=== PATIENT | female | born 1995 | race Caucasian/White ===

== ENCOUNTER 2020-02-03 07:48 | Inpatient (IN) | payer MEDICAID, OTHER ==
[2020-02-03] MEDS ORDERED: Lactated Ringers 1,000 ML IV ONE (07:57)
[2020-02-03] MEDS ORDERED: Tranexamic Acid 1,000 MG in Sodium Chloride 0.9% 100 ML IV PRN (07:57)
[2020-02-03] MEDS ORDERED: Methylergonovine 0.2 MG/1 ML Amp IM PRN (07:57)
[2020-02-03] MEDS ORDERED: Ondansetron 4 MG/2 ML SDV IVPUSH PRN (07:57)
[2020-02-03] MEDS ORDERED: Sodium Chloride 0.9% 10 ML Syringe FLUSH PRN (07:57)
[2020-02-03] MEDS ORDERED: Lidocaine 1% 30 ML SDV INJECT PRN (07:57)
[2020-02-03] MEDS ORDERED: Carboprost Tromethamine 250 MCG/1 ML Amp IM PRN (07:57)
[2020-02-03] MEDS ORDERED: Misoprostol 400 MCG (4 X 100 MCG TAB) RECTAL PRN (07:57)
[2020-02-03] MEDS ORDERED: Oxytocin/Normal Saline 30 UNIT/500 ML BAG IV SCH ×2 (08:00)
--- NOTE | 2020-02-03 08:58 | PCM.PREANE ---
Preanesthetic Assessment - Procedure Proposed Procedure: pre induction assessment carrying twins. - Anesthesia/Transfusion/Family Hx Anesthesia History: Prior Anesthesia Without Reaction Family History of Anesthesia Reaction: No Transfusion History: No Prior Transfusion(s) - Review of Systems General: No Symptoms Pulmonary: No Symptoms Cardiovascular: No Symptoms Gastrointestinal: No Symptoms Neurological: No Symptoms Other: Reports: None - Physical Assessment NPO Status Date: 02/03/20 NPO Status Time: 07:00 Vital Signs: see nursing record ASA Class: 3E Mental Status: Alert & Oriented x3 Airway Class: Mallampati = 2 Dentition: Reports: Normal Dentition Thyro-Mental Finger Breadths: 3 Mouth Opening Finger Breadths: 3 ROM/Head Extension: Full Lungs: Clear to Auscultation Cardiovascular: Regular Rate - Lab Values: see chart. - Allergies Allergies/Adverse Reactions: Allergies Allergy/AdvReac Type Severity Reaction Status Date / Time No Known Allergies Allergy Verified 01/20/20 11:36 - Blood Blood Available: Yes Product(s) Available: PRBC - Anesthesia Plan Free Text/Narrative:: Discussed IT for labor analgesia. Discussed SAB and GETA for CS. Also discussed TAP blocks post-c section for pain relief. Pt. states understanding of all procedures discussed. Consents to IT including multiple repeats PRN and CS (SAB vs GETA) and TAP blocks. Pre-Op Medication Ordered: None - Acknowledgements Anesthesia Type Planned: General Anesthesia, Spinal Pt an Appropriate Candidate for the Planned Anesthesia: Yes Alternatives and Risks of Anesthesia Discussed w Pt/Guardian: Yes Pt/Guardian Understands and Agrees with Anesthesia Plan: Yes Additional Comments: Pt on baby ASA 1 QD for twin . PT BMI 47.1 69inches 319 pounds. PreAnesthesia Questionnaire HEENT History: Reports: None Cardiovascular History: Reports: None Respiratory History: Reports: None Gastrointestinal History: Reports: None Genitourinary History: Reports: None [employer] History: Reports: None Other Musculoskeletal History: CLICK IN LEFT HIP AT . ABMORMAL X-RAY Neurological History: Reports: None Psychiatric History: Reports: Anxiety, Depression Endocrine/Metabolic History: Reports: None Hematologic History: Reports: None Oncologic (Cancer) History: Reports: None Dermatologic History: Reports: None - Infectious Disease History Infectious Disease History: Reports: Chicken Pox - Past Surgical History HEENT Surgical History: Reports: None Cardiovascular Surgical History: Reports: None Respiratory Surgical History: Reports: None GI Surgical History: Reports: None Neurological Surgical History: Reports: None Musculoskeletal Surgical History: Reports: None - HOME MEDS Home Medications: Home Meds Ferrous Sulfate [Iron] 1 tab PO DAILY 12/23/19 [History] #103/Iron Fumarate/Fa [ ] 1 tab PO DAILY 12/23/19 [ History] Aspirin [Aspirin EC] 81 mg PO DAILY 12/30/19 [History] - CURRENT (IN HOUSE) MEDS Current Meds: Current Medications Acetaminophen (Tylenol) 650 mg PO Q4H PRN PRN Reason: Pain (Mild 1-3) and fever Carboprost Tromethamine (Hemabate Ds) 250 mcg IM ASDIRECTED PRN PRN Reason: HEMORRHAGE Fentanyl (Sublimaze) 100 mcg IVPUSH Q1H PRN PRN Reason: Pain (moderate 4-6) Lactated Ringer's (Ringers, Lactated) 1,000 mls @ 999 mls/hr IV BOLUS ONE Stop: 02/03/20 08:57 Lactated Ringer's (Ringers, Lactated) 1,000 mls @ 125 mls/hr IV ASDIRECTED JACOB Oxytocin/Sodium Chloride (Pitocin In Ns 30 Unit/500 Ml) 30 unit in 500 mls @ 2 mls/hr IV TITRATE JACOB; Protocol Tranexamic Acid 1,000 mg/ (Sodium Chloride) 110 mls @ 660 mls/hr IV ONETIME PRN PRN Reason: Bleeding Lidocaine HCl (Xylocaine-Mpf 1%) 30 ml INJECT ASDIRECTED PRN PRN Reason: Perineal Repair Methylergonovine Maleate (Methergine) 0.2 mg IM ASDIRECTED PRN PRN Reason: Hemorrhage Misoprostol (Cytotec) 800 mcg RECTAL ASDIRECTED PRN PRN Reason: Hemorrhage Ondansetron HCl (Zofran) 4 mg IVPUSH Q4H PRN PRN Reason: Nausea/Vomiting Sodium Chloride (Saline Flush) 10 ml FLUSH ASDIRECTED PRN PRN Reason: Keep Vein Open
--- NOTE | 2020-02-03 09:03 | OBOUT ---
DATE: 02/03/2020 INDICATION FOR NST: Twin , here for induction of labor. REPORT: Twin A: Baseline heart rate 130 beats per minute. Moderate beat- to-beat variability. Accelerations noted. Twin B: Baseline heart rate 140. [place] showing contractions about every 2 minutes, but the patient is not feeling any of these, and then there are periods where the uterus was quiet. INTERPRETATION: Category 1 reassuring and reactive NST. [facility] /[id number]
[2020-02-03] MEDS: Lactated Ringers 1,000 ML IV SCH ×3 (09:15→23:29)
[2020-02-03] MEDS: fentaNYL 100 MCG/2 ML SDV IVPUSH PRN ×3 (15:42→18:36)
--- NOTE | 2020-02-03 19:09 | PN ---
DATE: 02/03/2020 SUBJECTIVE: The patient is feeling her contractions more, and she is more uncomfortable. She was able to get a little bit of rest after a recent dose of fentanyl. Previous to that, I had tried rupturing her membranes, but was unsuccessful, and therefore, I wanted to give her a little bit of time and see if she ruptured on her own. She has been up on the peanut ball and primarily resting in bed and tolerating things overall quite well. OBJECTIVE: Vital Signs: Temperature 97.6, last blood pressure 136/61. Pelvic: Cervix 3 to 4 cm dilated, 80% effaced. Bag of water remains intact, and in palpating them, the cervix feels well defined, but the membranes themselves are quite rough and bumpy in texture, and I had some difficulty with the AmniHook and being able to get the bag of water to actually break. Did cause a little bit of vaginal bleeding as well, so I question if I have scraped the cervix some or if the membranes were just that resilient. Eventually, I did get the bag of water to break, and we had good return of clear fluid, and the patient tolerated quite well. Babies are doing well on the heart monitor after that, and the patient's contractions are continuing about every 2 to 3 minutes. ASSESSMENT: 1. A 38-6/7 weeks' twin in a 1, para 0. 2. Former smoker. 3. Class 3 obesity. 4. Blood type A positive, Rh negative, group B strep negative. 5. Abnormal glucose tolerance test. 6. Mild preeclampsia. Blood pressure is currently doing well without any medications. PLAN: At this time, continue with active labor management. Continue increasing the Pitocin. May need to consider taking a break from the Pitocin if things are not progressing normally. Dr. Stone and Dr. Lopez have been updated, and I will be anticipating them both to be present at time of delivery in case any additional assistance is necessary. [facility] /[id number]
[2020-02-03] MEDS ORDERED: EPINEPHrine 1 MG/1 ML Amp ONE ×2 (19:50→23:59)
--- NOTE | 2020-02-03 20:37 | PCM.PRNOTE ---
- Free Text/Narrative Note: IT In room 1951 Time out complete. Back prepped and draped NSF with betadine. Lidocaine 1% skin wheal. SAB 24ga 6 inch times 3 attempts. Success at L3/4 +CSF - Heme - Parathesia. 0.9mL marcaine 0.75% epi 0.1 mL Precedex 10 mcg saline 0.8mL procedure complete 2027. All needles accounted for and disposed of in sharps bin.
[2020-02-03] MEDS ORDERED: Dexmedetomidine 200 MCG/2 ML SDV ONE ×2 (23:50→23:59)
[2020-02-03] MEDS ORDERED: Succinylcholine 200 MG/10 ML MDV ONE (23:52)
[2020-02-03] MEDS ORDERED: Rocuronium 100 MG/10 ML MDV ONE (23:53)
[2020-02-03] MEDS ORDERED: Oxytocin/Normal Saline 30 UNIT/500 ML BAG ONE (23:57)
[2020-02-03] MEDS ORDERED: Sodium Chloride 0.9% 10 ML Syringe ONE (23:59)
[2020-02-04] MEDS ORDERED: ceFAZolin 1 GM in Premix Bag 1 BAG IV STA (01:20)
[2020-02-04] MEDS ORDERED: ceFAZolin 2 GM in Premix Bag 1 BAG IV STA (01:20)
[2020-02-04] MEDS ORDERED: Simethicone 80 MG Tab.Chew PO PRN (01:24)
[2020-02-04] MEDS ORDERED: Benzocaine/Menthol 20%-0.5% Spray 56 GM Canister TOP PRN (01:24)
[2020-02-04] MEDS: Ibuprofen 800 MG Tab PO PRN ×3 (02:09→19:56)
[2020-02-04] MEDS: Lactated Ringers 1,000 ML IV SCH (02:20)
--- NOTE | 2020-02-04 05:45 | DEL ---
DATE: 02/04/2020 PREPROCEDURE DIAGNOSES: 1. A 39-0/7 weeks' intrauterine based on last menstrual period. 2. 1 para 0. 3. Dichorionic diamniotic twin gestation with concurrent and symmetric growth on ultrasounds. 4. Former smoker. 5. Class III obesity. 6. Blood type A negative, group B strep negative, rubella immune. 7. Abnormal 1-hour glucose tolerance test, normal 3-hour test. 8. Mild preeclampsia with a protein-creatinine ratio of 0.46. 9. Anemia of . POSTPROCEDURE DIAGNOSES: 1. A 39-0/7 weeks' intrauterine based on last menstrual period. 2. 1, now para 1-0-0-2. 3. Dichorionic diamniotic twin gestation with concurrent and symmetric growth on ultrasounds. 4. Former smoker. 5. Class III obesity. 6. Blood type A negative, group B strep negative, rubella immune. 7. Abnormal 1-hour glucose tolerance test, normal 3-hour test. 8. Mild preeclampsia with a protein-creatinine ratio of 0.46. 9. Status post vacuum-assisted vaginal delivery of twin A. 10.Artificial rupture of membranes for twin B. 11.Post vacuum-assisted vaginal delivery of twin B for bradycardia in the 50s. Note, bradycardia for twin A in the 100s. 12.Status post 2nd-degree laceration repair. 13.Manual exploration of the uterus. 14.Avulsion of umbilical cord for baby A. 15.Anemia of . TOOL ROOM ATTENDANT: Yakov Lopez MD CARE PROVIDER: Lorna Stone MD. BRIEF HISTORY: The patient is a 24-year-old with the above-listed diagnoses, who presented to the hospital at 38 and 6/7 weeks' gestation for induction of labor due to twin gestation and desire for vaginal delivery. Babies were cephalic, cephalic on ultrasound. Please see history and physical and progress notes for further details. The patient's blood pressures were quite labile since she has been in the hospital, sometimes in the 120s/60s, at other times in the 160s/80s and occasional 90s, very dependent on anxiety, pain, or discomfort. Preeclampsia labs were positive and she ruled in with a protein-creatinine ratio of 0.46. Uric acid level of 7.1, normal platelets at 225, hemoglobin 11.7, otherwise fairly unremarkable. The patient's labor was initiated with Pitocin and she was at 3 to 3-1/2 cm and having regular contractions, but not making significant cervical change, so artificial rupture of membranes was attempted around 3 o'clock in the afternoon and then performed closer to 4 o'clock in the afternoon, after which time she continued to make excellent labor progress. She had an intrathecal for anesthesia, and once complete, she was transferred from the labor room down to the operating suite for a double setup with appropriate physicians, nursing staff, operating crew, and anesthesia all present. Delivery details as below. DESCRIPTION OF PROCEDURE: With the patient in dorsal lithotomy position, she delivered baby A via vacuum-assisted vaginal delivery over intact perineum. During pushing, she had excellent pushing efforts, however, the baby would go back up high into the vagina after each push and started to have some bradycardia down in the 100s, therefore, vacuum assistance was performed for suspicion of potential compromise if not delivered sooner. The patient was quickly verbally prepared that we were going to place a vacuum. Baby was estimated to be appropriate gestational age. Mother had adequate pelvis. Position was OA. No evidence of being asynclitic and station was 0, and +3 with pushing. Kept the vacuum suction in the green zone at 450 to 600 mmHg. There were no pop -offs. Kiwi type vacuum handheld was used and there were no complications. Baby was dried and stimulated. After that, 3-vessel umbilical cord was doubly clamped and cut. Baby taken by Dr. Stone to the warmer for initial evaluation. Cervix re-examined contracted to 9cm, but stretchy. Amniotic fluid sac for baby B was then ruptured with AmniHook with return of good clear fluid. Mother was able to continue pushing efforts and then came down to probably a -4 station and baby B was developing bradycardia in the 50s, so high vacuum was performed for delivery of baby B also for the indication of immediate or potential compromise. The patient continued to meet the criteria that she did for baby A and we also kept that suction in the 450 to 600 mmHg zone. Baby delivered in OA position over intact perineum. The vacuum was then removed and baby dried and stimulated. 3-vessel umbilical cord was doubly clamped and cut. Baby taken to the warmer again by Dr. Stone for further assessment. Placentas were attempted to be delivered by gentle cord traction and concomitant uterine massage, but not forthcoming. There was a 2nd-degree laceration just to the maternal right side with an associated hematoma. The perineal tissue was not involved. Dr. Lopez repaired that with 3-0 Vicryl in the usual fashion. This reapproximated nicely. There were some anterior bilateral labial lacerations that did not require repair. Further attempts to deliver the placentas resulted in cord avulsion of the placenta for baby A. We proceeded to deliver placenta for baby B hoping they were partly fused and that we could actually deliver them both with the cord for baby B, so the 2nd placenta delivered, was inspected and appeared intact. Dr. Lopez then removed the placenta for baby A by simply grasping where it was at the lower uterine segment. I inspected it and it did not appear to be intact. Dr. Lopez then performed manual exploration of the uterus and did not feel any remaining placental or other tissue fragments. With the ultrasound already being in the room, we did verify that the uterus appeared empty on ultrasound. With this, he did pull loose some of the stitching from the 2nd-degree repair, so I placed another 3-0 Vicryl stitch as a large [id number] suture with good approximation. Tissues reinspected and she had good hemostasis and uterus was firm. The patient tolerated the procedures well. FINDINGS: Stage I 8 hours, stage II 30 minutes, stage III 15 minutes. Baby A was born at 0018, score of 8 and 9, weight 2850 g (6 pounds 4 ounces), length 19-3/4 inches, head circumference 13 inches, chest circumference 12-1/2 inches. Baby B was delivered at 0031, score of 8 and 9, weight 3160 g (7 pounds 0 ounces), length 19-3/4 inches, head circumference 13-1/4 inches, chest circumference 13 inches. ESTIMATED BLOOD LOSS: 400 mL. COMPLICATIONS: None. DISPOSITION: Mother and baby to be taken back to the routine labor and delivery room to initiate bonding and breast-feeding. [facility] /[id number] [place]AYO
[2020-02-04] MEDS: Ferrous Sulfate 325 MG Tab PO SCH (08:36)
[2020-02-04] MEDS: Prenatal Multivitamin with Calcium/Folic Acid/Iron Tab PO SCH (08:37)
[2020-02-04] MEDS: Acetaminophen 325 MG Tab PO PRN ×2 (08:37→19:56)
[2020-02-04] MEDS: Docusate Sodium 100 MG Cap PO PRN (08:40)
--- NOTE | 2020-02-04 10:04 | PCM48HPAN ---
Post Anesthesia Note - EVALUATION WITHIN 48HRS OF ANESTHETIC Vital Signs in Normal Range: Yes Patient Participated in Evaluation: Yes Respiratory Function Stable: Yes Airway Patent: Yes Cardiovascular Function Stable: Yes Hydration Status Stable: Yes Pain Control Satisfactory: Yes Nausea and Vomiting Control Satisfactory: Yes Mental Status Recovered: Yes Vital Signs: Last Vital Signs Temp 97.9 F 02/04/20 02:30 Pulse 66 02/04/20 03:00 Resp 18 02/04/20 03:00 BP 126/70 02/04/20 03:00 Pulse Ox 99 02/03/20 20:30 - COMMENTS/OBSERVATIONS Free Text/Narrative:: Post IT day 1. Twin delivery in OR last night. Pt. states she is comfortable and having no ARCs.
[2020-02-04] MEDS ORDERED: Oxytocin/Normal Saline 30 UNIT/500 ML BAG IV ONE (10:16)
[2020-02-05] MEDS: Docusate Sodium 100 MG Cap PO PRN ×2 (08:42→22:13)
[2020-02-05] MEDS: Ferrous Sulfate 325 MG Tab PO SCH (08:42)
[2020-02-05] MEDS: Prenatal Multivitamin with Calcium/Folic Acid/Iron Tab PO SCH (08:43)
[2020-02-05] MEDS: Ibuprofen 800 MG Tab PO PRN ×2 (08:43→17:55)
--- NOTE | 2020-02-05 18:02 | PN ---
DATE: 02/05/2020 SUBJECTIVE: The patient is day #1, status post vacuum-assisted vaginal delivery of twins, both vertex, vertex. The patient also did have uterine exploration after retained placenta and is status post antibiotics. The patient's was complicated by mild preeclampsia with a protein creatinine ratio of 0.46. Today, the patient and babies are doing well. Still with edema, and the vaginal bleeding is normal. OBJECTIVE: The patient is afebrile. Heart rate 68 to 70, blood pressure 140 to 151 systolic over 55 to 92 diastolic, respiratory rate 16, and O2 saturations 98% to 99%. The patient's fundus is firm, below the umbilicus. She appears well. As stated before, the edema is starting to come down somewhat. The patient is rubella immune. A negative, however, both babies are Rh negative. LABORATORY DATA: She was COVID negative. Hemoglobin prior to delivery was 11.7. ASSESSMENT AND PLAN: day #1, status post vacuum-assisted vaginal delivery of twins at term with retained placenta, also resolving mild preeclampsia. I would like to continue care and watch her blood pressures through the day to see if we do need to start antihypertensives. We will repeat a CBC in the morning before likely discharge. [facility] /[id number] [place]AY[place]
[2020-02-05] MEDS: Acetaminophen 325 MG Tab PO PRN (22:13)
[2020-02-06] MEDS: Ibuprofen 800 MG Tab PO PRN (07:52)
[2020-02-06] MEDS: Ferrous Sulfate 325 MG Tab PO SCH (08:35)
[2020-02-06] MEDS: Prenatal Multivitamin with Calcium/Folic Acid/Iron Tab PO SCH (08:35)
[2020-02-06] MEDS: Docusate Sodium 100 MG Cap PO PRN (08:36)
[2020-02-06 09:27] VITALS: BP 145/85; PULSE 72
--- NOTE | 2020-02-10 08:22 | DISCH ---
ADMITTING DIAGNOSES: 1. 38-6/7 weeks twin by last menstrual period. 2. 1, para 0. 3. Twin gestation, dichorionic-diamniotic with concurrent symmetric growth ultrasounds. 4. Former smoker. 5. Class 3 obesity. 6. Blood type A negative, group B strep negative, rubella immune. 7. Mild preeclampsia. DISCHARGE DIAGNOSES: 1. Delivered at 39-0/7 weeks' gestation in a 1 now para 1-0-0-2, status post vacuum-assisted vaginal delivery to each twin, manual exploration of the uterus, second-degree laceration repair. 2. Twin gestation, dichorionic-diamniotic with concurrent symmetric growth ultrasounds. 3. Former smoker. 4. Class 3 obesity. 5. Blood type A negative, group B strep negative, rubella immune. 6. Mild preeclampsia. BRIEF HISTORY: A 24-year-old female with above-listed diagnoses presented to the hospital for planned induction of labor due to twin gestation at full term. Once the Pitocin was given and artificial rupture of membranes performed, stage I labor was approximately 8 hours, stage II for twin A was about 15 minutes and twin B about 30 minutes total (born 13 min after baby A.), and stage III about 15 minutes. See admission history and physical and operative report for further details. Delivery itself was performed with double setup in the operating room, attended by myself, Dr. Lopez, and Dr. Stone. Vacuums were used because of decreased heart rate in stage II for each of the twins. Twin B was quite high, probably even above the cervix at the time of vacuum application, but imminent risk was determined and felt necessary for vacuum. As far as her admission labs; hemoglobin was 11.7, hematocrit 35.3, platelets 215. Uric acid elevated at 7.1, and urine protein-creatinine ratio of 0.46. COVID test negative. Otherwise, preeclampsia labs on admission was unremarkable. HOSPITAL COURSE: Good. After delivery, the patient has been doing well. She is ambulating, tolerating regular diet. No chest pain or shortness of breath. No symptoms of preeclampsia. She has had some intermittently elevated blood pressures, but not requiring any medications to manage them, and feeling ready to go home on day #2. DISCHARGE CONDITION: Good. PHYSICAL EXAMINATION: Vital Signs: Temperature is 97.7, pulse 72, blood pressure 133/78 and 145/85, respiratory rate of 18, O2 saturations 100% on room air. Heart: Regular without murmurs. Lungs: Clear to auscultation bilaterally. Abdomen: Soft, nontender. Fundus is firm and below the umbilicus. Extremities: 3+ pitting edema. No erythema or tenderness noted. Neurological: No clonus and reflexes are 2+ and equal. LABORATORY DATA: Discharge hemoglobin is 11.4 and platelets 258. DISPOSITION: Home with family. INSTRUCTIONS: Routine post vaginal delivery instructions provided including to come in if she has any troubles with foul-smelling drainage, discharge, increased pelvic pain, fevers, chills, symptoms of preeclampsia, or elevated blood pressures. FOLLOWUP: She will be seen in the clinic tomorrow with her twins and blood pressure will be rechecked at that time, and we will also anticipate checking her pressures at baby's 2-week visit and as needed should symptoms develop, and certainly at her 6-week exam as well. The patient's questions have been answered. MEDICATIONS: 1. Ibuprofen 800 mg every 8 hours as needed for pain. 2. Tylenol 650 mg every 6 hours as needed for pain. 3. Iron 325 mg once daily and she can just finish what she has at home. 4. vitamin, continue 1 daily. 5. Colace 100 mg twice daily as needed as a stool softener. [facility] /[id number] MTDD
== END 2020-02-06 11:30 | disposition home or self-care (01) | DRG 807 ==
LOC: DL.OBCHECK 07:48 → DL.OB 07:57 → OBSVTOIN 02-04 00:18
PROVIDERS: ADMIT Family Medicine; ATTEND Family Medicine
PROC: 10D07Z6 Extraction of Products of Conception, Vacuum, Via Natural or Artificial Opening (ICD-10-PCS; principal; 2020-02-04)
PROC: 10907ZC Drainage of Amniotic Fluid, Therapeutic from Products of Conception, Via Natural or Artificial Opening (ICD-10-PCS; principal; 2020-02-04)
PROC: 0KQM0ZZ Repair Perineum Muscle, Open Approach (ICD-10-PCS; principal; 2020-02-04)
DX: O30.043 Twin pregnancy, dichorionic/diamniotic, third trimester (principal); Z37.2 Twins, both liveborn; Z3A.38 38 weeks gestation of pregnancy; Z87.891 Personal history of nicotine dependence; O99.214 Obesity complicating childbirth; E66.9 Obesity, unspecified; O99.02 Anemia complicating childbirth; D64.9 Anemia, unspecified; O70.1 Second degree perineal laceration during delivery; O14.04 Mild to moderate pre-eclampsia, complicating childbirth; O76 Abnormality in fetal heart rate and rhythm complicating labor and delivery; Z20.828 Contact with and (suspected) exposure to other viral communicable diseases
CPT/HCPCS: 36415; 51702; 59025; 59409; 81003; 82565; 82570; 83615; 84156; 84450; 84460; 84520; 84550; 85027; A9270-GY; J0171; J0690; J2405; J2590; J3010; J7120; U0002

== ENCOUNTER 2022-07-11 18:23 | Emergency (ER) | payer BC, MEDICAID ==
[2022-07-11] MEDS ORDERED: diphenhydrAMINE 25 MG Tab PO ONE (19:16)
[2022-07-11 19:20] VITALS: BP 179/98; PULSE 73
== END 2022-07-11 20:09 | disposition home or self-care (01) ==
LOC: DL.ED 18:23
DX: B08.4 Enteroviral vesicular stomatitis with exanthem (principal); Z79.899 Other long term (current) drug therapy
CPT/HCPCS: 87081; 87430; 99283; A9270